=== PATIENT | male | born 1945 | race Caucasian/White ===

== ENCOUNTER 2024-01-11 13:41 | Observation (INO) ==
--- NOTE | 2024-01-11 13:46 | ED Triage Note ---
Date of Service January 11, 2024 Provider in Triage Author: Zoltan Mccullough History of Present Illness This patient was briefly evaluated while in triage. An abbreviated physical exam was performed. This patient is a 78-year-old Male who presents to the ED for evaluation referred by cardiology for SOB, dizzy, "heart acting weirdly" for the last 2-3 days, but worse today "I think it's my afib." + for COVID on Sunday 12/31, is feeling better from these symptoms was started on Paxlovid, but stopped due to symptoms on Eliquis Physical Exam GENERAL: NAD, afebrile CARDIOVASCULAR: IRR RESPIRATORY: CTA ABDOMEN: BS x 4. Nontender to palpation. Initial orders for labs and / or imaging were placed and patient was placed in the waiting area until a bed is available. Please see further documentation for the full ED course.
[2024-01-11 14:34] LABS: Basophils # (auto) 0.03 K/uL (0.00-0.20); Basophils % (auto) 0.4 %; Eosinophils # (auto) 0.34 K/uL (0.00-0.50); Eosinophils % (auto) 4.5 %; Hematocrit (blood only) 47.4 % (42.0-52.0); Hemoglobin 16.6 g/dl (14.0-18.0); Immature Granulocytes # (auto) 0.02 K/uL (0.01-0.20); Immature Granulocytes % (auto) 0.3 %; Lymphocytes # (auto) 1.21 K/uL (1.20-3.40); Lymphocytes % (auto) 16.1 %; Mean Corpuscular Hemoglobin 30.7 pg (25.0-34.0); Mean Corpuscular Volume 87.8 fL (80.0-100.0); Mean Platelet Volume 10.4 fL (9.4-12.4); Monocytes # (auto) 0.66 K/uL (0.11-0.59); Monocytes % (auto) 8.8 %; Neutrophils # (auto) 5.25 K/uL (1.40-6.50); Neutrophils % (auto) 69.9 %; Platelet Count 235 K/uL (130-400); RDW Coefficient of Variation 11.7 % (11.5-14.5); RDW Standard Deviation 37.1 fL (36.4-46.3); White Blood Count 7.51 K/ul (4.8-10.8)
[2024-01-11 14:35] LABS: Partial Thromboplastin Ratio 1.1; Partial Thromboplastin Time 29 Seconds (21-31); Prothrombin Time 11.3 Seconds (9.0-12.0)
[2024-01-11 14:45] LABS: Albumin Globulin Ratio 1.6 (0.9-2); Albumin Level 4.9 gm/dl (3.4-5.0); BUN Creatinine Ratio 13.4 (10-20); Bilirubin,Total 0.6 mg/dl (0.2-1.0); Calcium 9.7 mg/dl (8.6-10.3); Creatinine Clr Calc Pharmacy 73.4 ml/min; Est GFR (African American) 87.5 ml/min; Est GFR (Non-African American) 75.5 ml/min; Globulin 3.1 gm/dl (2.5-4.0); Magnesium 2.1 mg/dl (1.7-2.4)
[2024-01-11 14:50] LABS: Troponin I High Sensitivity 8.6 pg/ml (0-20)
[2024-01-11 14:59] LABS: Thyroid Stimulating Hormone 1.97 uIu/ml (0.300-4.500)
--- NOTE | 2024-01-11 15:21 | XRay Report ---
XR chest 1V not portable HISTORY: Shortness of breath. Palpitations. COMPARISON: None. FINDINGS: The lungs are clear. Cardiac silhouette is normal in size. No pleural effusions. No pneumot horax. IMPRESSION: No acute process. ACT 112: Negative or not required by law. Electronically signed by: Toñito Kendrick M.D. 01/11/2024 3:19 PM
--- NOTE | 2024-01-11 16:39 | Emergency Department Note ---
Impression & Plan Pre-syncope ADMIT ED Provider Note HPI: History obtained from patient. The patient is a very pleasant 78-year-old gentleman with history of atrial fibrillation, currently on dofetilide as well as Eliquis, presents the emergency department with a chief complaint of multiple episodes of lightheadedness/presyncope today. Patient states that 2-3 separate times today he had an episode where he felt lightheaded and at times felt as if he was going to pass out. Patient states he also felt palpitations and at times a sensation as if his heart rate was "low". He contacted his access representative office and was advised to come into the ER to be assessed. Patient states he was diagnosed with COVID-19 about 11 days ago. On arrival here to the ED the patient is hemodynamically stable, on my initial assessment he is resting comfortably and is in no acute distress. Patient denies any current chest pain, states he does have some mild shortness of breath. ROS: - Per HPI Differential Diagnosis: Arrhythmia to include atrial fibrillation with RVR, sick sinus syndrome, heart block, COVID-19 infection, pneumonia, acute coronary syndrome, critical electrolyte abnormalities, amongst other potential pathologies. *Outpatient medications and allergy history reviewed. PE: General: Alert HEENT: Normocephalic, trachea midline Eyes: Extraocular eye movement is intact, no scleral erythema Pulmonary: Clear to auscultation bilaterally, no wheezing Cardio: Regular rate and irregular rhythm GI: Abdomen is soft to palpation : No suprapubic tenderness MSK: No evidence of trauma or malformation of the extremities, no edema Skin: No evidence of rash Neuro: Alert, no focal deficits Psychiatric: Cooperative EKG: (As interpreted by myself): Rate: 84 Rhythm: Atrial fibrillation Intervals: Within normal limits ST changes: No ST elevation Time: 1405 Chest x-ray: (As interpreted by myself): No acute disease Interventions provided in ED: -IV fluid bolus Medical Decision Making: IV was established and lab work obtained, patient was placed on wool presser when placed in ED room. Lab work shows no leukocytosis, hemoglobin is normal, platelet count is normal, CMP does not show any evidence of any critical findings, troponin is negative. Patient is already anticoagulated on Eliquis, low suspicion for PE. Viral panel testing was obtained and the patient is positive for COVID-19. He states he was positive on a home test about 11 days ago. EKG obtained here in the ER shows evidence of atrial fibrillation with good rate controlled 84. I do not see any acute ischemic changes. I discussed the patient's presentation with the on-call cardiology midlevel provider, Saji May PA-C, he states that he was concerned the patient might be having conversion pauses or sinus node dysfunction or possibly sick sinus because he felt like he was going in and out of atrial fibrillation. Patient did not feel comfortable going home and therefore was sent to the ER with plan for likely overnight observation on wool presser. I discussed this with the patient, he is in agreement for admission. Case was then discussed with the on- call hospitalist, Dr. Back, the patient was placed for admission in stable condition. Consultants/Discussions held with other healthcare providers: -[facility], Saji May PA-C -Hospitalist, Dr. Back Disposition discussion held by myself with: -Patient Diagnosis: 1. Presyncopal event, acute 2. COVID-19 infection, acute 3. Sensation of palpitations, acute Disposition: Admission Jose Cash DO Emergency Medicine Past Med/Surg History Problem List (Updated 01/11/24 @ 21:04 by Jose Cash DO) Pre-syncope (Acute) History of COVID-19 Generalized weakness Near syncope Positive colorectal cancer screening using Cologuard test Prostate nodule Sinus bradycardia Family history of melanoma Mother Elevated prostate specific antigen (PSA) Osteoarthritis of left knee Urinary retention Paroxysmal atrial fibrillation controlled w/ medications, follows w/ Dr Benson Renal cyst, left Hepatic cyst Hypertension Hypercholesterolemia Neurogenic bladder Anticoagulant long-term use Medical History History of cardioversion Fall Surgical History Hx of colonoscopy Hx of arthroscopic knee surgery Hx of prostate biopsy S/P TURP (status post transurethral resection of prostate) x2 2016, 2017 S/P left knee arthroscopy Family History Father Myocardial infarction Mother Melanoma Cancer Denies family history of Ovarian cancer Prostate cancer Breast cancer Colorectal cancer Social History (Reviewed 01/11/24 @ 17:53 by RUTH Landin Smoking Status: Never smoker Second Hand Exposure: No; Do You Dip or Chew Tobacco: No; Hx Alcohol Use: Yes Alcohol type: beer Alcohol Intake Frequency: 4 or More x per/Week Hx Substance Use: No Preferred Language: Italian Communication Ability: Effective Visual Impairment: No Limitations Hearing Ability: Normal Peach Grower Required: No Beliefs That Will Affect Care: None marital status: Current Living Situation: Spouse current occupational status: retired How many Children do You have: 2 Feels Safe at Home: Yes Childhood Exposure to Second-Hand Smoke: No Diet: regular caffeine: Yes during the past year weight has: remained stable Dental Care, Regularly: Yes Physical Activity Frequency: Daily Seatbelt Use: always Sunscreen Use: Yes Assistive Devices: Glasses Allergies Allergies Allergy/AdvReac Type Severity Reaction Status Date / Time aspirin Allergy Severe Anaphylaxis Verified 01/11/24 17:33 NSAIDS (Non-Steroidal Allergy Severe Anaphylaxis Verified 01/11/24 17:33 Anti-Inflamma Home Meds Previous Rx's Medication Instructions Recorded atorvastatin 20 mg tablet 20 mg PO DAILY #90 tabs 06/09/23 apixaban 5 mg tablet (Eliquis) 5 mg PO BID #180 tabs 09/29/23 dofetilide 500 mcg capsule 500 mcg PO Q12H #180 caps 09/29/23 losartan 25 mg tablet 25 mg PO DAILY #90 tabs 09/29/23 Results & Data (ED) Vital Signs Vital Signs - 24 hr 01/11/24 13:43 01/11/24 17:03 01/11/24 17:16 Temperature 37.2 C Temperature Source Temporal Artery Scan Pulse Rate 87 61 Pulse Rate [Finger] 71 Pulse Rhythm Regular Pulse Rhythm [Finger] Regular Pulse Strength Normal Pulse Strength [Finger] Normal Respiratory Rate 20 20 Respiratory Effort / Characteristics Non-Labored Spontaneous Non-Labored Spontaneous Respiratory Depth Normal Normal Blood Pressure 148/95 H Blood Pressure [Left Arm] 135/92 Blood Pressure Mean 112 Blood Pressure Mean [Left Arm] 106 Blood Pressure Position Sitting Blood Pressure Position [Left Arm] Pulse Oximetry 96 97 Oxygen Delivery Method Room Air Room Air Sepsis Recent Fever Within 48 Hours No Sepsis New/Unexplained Change in Mental Status N/A Sepsis Action Taken by Nursing No Action Required 01/11/24 17:45 01/11/24 19:08 Temperature Temperature Source Pulse Rate Pulse Rate [Finger] 68 75 Pulse Rhythm Pulse Rhythm [Finger] Regular Regular Pulse Strength Pulse Strength [Finger] Normal Normal Respiratory Rate 20 20 Respiratory Effort / Characteristics Non-Labored Spontaneous Non-Labored Spontaneous Respiratory Depth Normal Normal Blood Pressure Blood Pressure [Left Arm] 135/92 135/90 Blood Pressure Mean Blood Pressure Mean [Left Arm] 106 105 Blood Pressure Position Blood Pressure Position [Left Arm] Sitting Pulse Oximetry 98 98 Oxygen Delivery Method Room Air Room Air Sepsis Recent Fever Within 48 Hours Sepsis New/Unexplained Change in Mental Status Sepsis Action Taken by Nursing Laboratory Data 01/11/24 14:06 01/11/24 14:06 Lab Results 01/11/24 01/11/24 Range/Units 14:06 17:07 WBC 7.51 (4.8-10.8) K/ul RBC 5.40 (4.70-6.10) M/uL Hgb 16.6 (14.0-18.0) g/dl Hct 47.4 (42.0-52.0) % MCV 87.8 (80.0-100.0) fL MCH 30.7 (25.0-34.0) pg MCHC 35.0 (32.0-36.0) g/dL RDW Std Deviation 37.1 (36.4-46.3) fL RDW Coeff of [place] 11.7 (11.5-14.5) % Plt Count 235 (130-400) K/uL MPV 10.4 (9.4-12.4) fL Immature Gran % (Auto) 0.3 % Neut % (Auto) 69.9 % Lymph % (Auto) 16.1 % [place] % (Auto) 8.8 % Eos % (Auto) 4.5 % Baso % (Auto) 0.4 % Neut # (Auto) 5.25 (1.40-6.50) K/uL Lymph # (Auto) 1.21 (1.20-3.40) K/uL [place] # (Auto) 0.66 H (0.11-0.59) K/uL Eos # (Auto) 0.34 (0.00-0.50) K/uL Baso # (Auto) 0.03 (0.00-0.20) K/uL Immature Gran # (Auto) 0.02 (0.01-0.20) K/uL PT 11.3 (9.0-12.0) Seconds INR 1.0 (0.9-1.1) APTT 29 (21-31) Seconds PTT Ratio 1.1 Sodium 140 (136-145) mmol/L Potassium 4.0 (3.5-5.1) mmol/L Chloride 104 (98-107) mmol/L Carbon Dioxide 28 (21-32) mmol/L Anion Gap 8 (3-11) BUN 13 (6-23) mg/dl Creatinine 0.97 (0.6-1.4) mg/dl Est Cr Clr Drug Dosing 73.4 ml/min Est GFR ( Amer) 87.5 ml/min Est GFR (Non-Af Amer) 75.5 ml/min BUN/Creatinine Ratio 13.4 (10-20) Glucose 114 H (70-99(Fasting)) mg/dl Calcium 9.7 (8.6-10.3) mg/dl Magnesium 2.1 (1.7-2.4) mg/dl Total Bilirubin 0.6 (0.2-1.0) mg/dl AST 18 (13-39) U/L ALT 22 (7-52) U/L Alkaline Phosphatase 53 (34-104) U/L Troponin I High Sens 8.6 (0-20) pg/ml Total Protein 8.0 (6.0-8.3) gm/dl Albumin 4.9 (3.4-5.0) gm/dl Globulin 3.1 (2.5-4.0) gm/dl Albumin/Globulin Ratio 1.6 (0.9-2) TSH 1.970 (0.300-4.500) uIu/ml SARS-CoV-2 (PCR) POSITIVE A (Negative) Influenza Type A (PCR) Negative (Neg) Influenza Type B (PCR) Negative (Neg) RSV (RT-PCR) Negative (Neg) Administered Medications Lactated Ringer's (Lr) 1,000 mls @ 100 mls/hr IV .Q10H MARCO Stop: 01/12/24 04:29 Last Admin: 01/11/24 18:52 Dose: 100 mls/hr Documented By: YAZ Discontinued Medications Sodium Chloride (Nss) 500 mls @ 999 mls/hr IV .Q31M ONE Stop: 01/11/24 17:32 Last Infusion: 01/11/24 17:35 Dose: Infused Documented By: Admin: 01/11/24 17:05 Dose: 999 mls/hr Documented By: YAZ Imaging Data Radiologist's Impression: Chest X-Ray 01/11/24 13:46 XR chest 1V not portable HISTORY: Shortness of breath. Palpitations. COMPARISON: None. FINDINGS: The lungs are clear. Cardiac silhouette is normal in size. No pleural effusions. No pneumothorax. IMPRESSION: No acute process. ACT 112: Negative or not required by law. Electronically signed by: Toñito Kendrick M.D. 01/11/2024 3:19 PM Discharge Plan Visit Data Chief Complaint: Cardiac Assessment Stated Complaint: CARDIAC ASS ED Provider: Jose Cash Discharge Problem: Pre-syncope Forms Stand Alone Forms: [facility] Prescriptions Prescriptions: No Action atorvastatin 20 mg tablet 20 mg PO DAILY Qty: 90 3RF Eliquis 5 mg tablet 5 mg PO BID Qty: 180 3RF dofetilide 500 mcg capsule 500 mcg PO Q12H Qty: 180 3RF losartan 25 mg tablet 25 mg PO DAILY Qty: 90 3RF Rx Instructions: TAKE ONE TABLET (25 MG) DAILY Referrals Referrals: Gallo Reynolds DO [Primary Care Provider] -
[2024-01-11] MEDS: SODIUM CHLORIDE 0.9% 500 ML IV ONE (17:05)
--- NOTE | 2024-01-11 17:07 | History & Physical Report ---
Date of Service January 11, 2024 Assessment & Plan (1) Near syncope: Plan: - Patient presented with multiple presyncopal events - Possibly secondary to drug interaction between Paxlovid and Dofelilide, atrial fibrillation, heart block, or arrhythmia - saw cardiology outpatient, recommended overnight observation on bus monitor to see if he is going in and out of atrial fibrillation or having conversion pauses, continue home meds, order TSH, CBC, Trop, and fluids. - NSS bolus given in ED, 1L LR ordered at maintenance rate - troponin, CXR, coag studies negative - EKG showed atrial fibrillation, QRS 76 - K+, Mg, and TSH within normal limits - Paxlovid discontinued - cardiology consulted - admit to PCU/tele for continuous cardiac monitoring (2) Paroxysmal atrial fibrillation: Plan: - EKG with cardio out patient this morning showed atrial fibrillation - EKG on admission continued afib - continue with home Eliquis and doftilide - bus monitor on tele (3) History of COVID-19: Plan: - tested positive Sunday 12/31, repeat pending - continue symptoms, improving - no hypoxia - discontinued Paxlovid 01/03 Plan Chronic stable diagnoses: Renal and hepatic cyst/ neurogenic bladder: continue with self caths. HTN: continue with home losartan HDL: continue with home statin VTE ppx: home Eliquis Diet: heart healthy Code status: FULL CODE Admission and Anticipated Discharge Date Admission Date: 01/11/24 History of Present Illness Chief Complaint: Syncopal event Primary Care Provider: Gallo Reynolds DO Patient is a 78 year old male with a history of A-fib on Eliquis and Dofetilide, hypertension, hyperlipidemia, renal and hepatic cysts, and neurogenic bladder. Patient self caths at home. He presented today after multiple presyncopal events this morning. He was diagnosed with COVID-19 on Sunday 12/31, in which he was prescribed Paxlovid. After about 2 days of taking the Paxlovid, he experienced a presyncopal event that he described at lightheadedness, dizziness, sweats, shortness of breath, and palpations. He shared that his pulse was between 30-40 during this episode. After this episode he stopped the Paxlovid and did have another event until this morning. He has been walking about 2 miles a day with no issues until today. On his walk this morning he barley made it down the driveway when he had a presyncopal event. He then had another event in his house later this morning. He had an appointment with cardiology today, in which they referred him to be admitted for monitoring. Cardiology stated that the events could be due to an interaction with the Paxlovid and Dofetilide. The patient currently complains of ongoing COVID symptoms of headache, rhinorrhea, dry cough, and shortness of breath. He denies current lightheadedness, dizziness, blurry vision, double vision, sore throat, hemoptysis, chest pain, palpitations, abdominal pain, nausea, vomiting, diarrhea, constipation, numbness, tingling, and edema. He does not smoke, and drinks alcohol socially, no illicit drug use. He denies a history of COPD or asthma. His POA is his . Allergies Allergy/AdvReac Type Severity Reaction Status Date / Time aspirin Allergy Severe Anaphylaxis Verified 01/11/24 17:33 NSAIDS (Non-Steroidal Allergy Severe Anaphylaxis Verified 01/11/24 17:33 Anti-Inflamma Home Medications Medication Instructions Recorded Confirmed Type atorvastatin 20 mg tablet 20 mg PO DAILY #90 tabs 06/09/23 01/11/24 Rx apixaban 5 mg tablet (Eliquis) 5 mg PO BID #180 tabs 09/29/23 01/11/24 Rx dofetilide 500 mcg capsule 500 mcg PO Q12H #180 caps 09/29/23 01/11/24 Rx losartan 25 mg tablet 25 mg PO DAILY #90 tabs 09/29/23 01/11/24 Rx Past Med/Surg History Problem List (Updated 01/11/24 @ 17:58 by Rachelle Glass PA-C) History of COVID-19 Generalized weakness Near syncope Positive colorectal cancer screening using Cologuard test Prostate nodule Sinus bradycardia Family history of melanoma Mother Elevated prostate specific antigen (PSA) Osteoarthritis of left knee Urinary retention Paroxysmal atrial fibrillation controlled w/ medications, follows w/ Dr Benson Renal cyst, left Hepatic cyst Hypertension Hypercholesterolemia Neurogenic bladder Anticoagulant long-term use Medical History History of cardioversion Fall Surgical History Hx of colonoscopy Hx of arthroscopic knee surgery Hx of prostate biopsy S/P TURP (status post transurethral resection of prostate) x2 2016, 2017 S/P left knee arthroscopy Family History Father Myocardial infarction Mother Melanoma Cancer Denies family history of Ovarian cancer Prostate cancer Breast cancer Colorectal cancer Social History Smoking Status: Never smoker Second Hand Exposure: No; Do You Dip or Chew Tobacco: No; Hx Alcohol Use: Yes Alcohol type: beer Alcohol Intake Frequency: 4 or More x per/Week Hx Substance Use: No Preferred Language: Belarusian Communication Ability: Effective Visual Impairment: No Limitations Hearing Ability: Normal Horse Groomer Required: No Beliefs That Will Affect Care: None marital status: Current Living Situation: Spouse current occupational status: retired How many Children do You have: 2 Feels Safe at Home: Yes Childhood Exposure to Second-Hand Smoke: No Diet: regular caffeine: Yes during the past year weight has: remained stable Dental Care, Regularly: Yes Physical Activity Frequency: Daily Seatbelt Use: always Sunscreen Use: Yes Assistive Devices: Glasses Review of Systems Review of Systems: See HPI above Physical Exam Physical Exam: The patient is awake, alert and oriented 3, well developed and well nourished, normocephalic and atraumatic, lying in bed and in no acute distress. Non-toxic appearing. Wearing a mask. HEENT- EOMI, mucous membranes moist. Hearing grossly intact. Neck-No JVD. No bruits. Heart-Irregularly irregular rhythm. normal S1 and S2. No murmurs, rubs or gallops. Lungs-clear bilaterally, no respiratory distress, no accessory muscle use. Abdomen-normal bowel sounds and soft. Non-tender. Extremities-no cyanosis or clubbing. No edema. Dermatologic-normal skin turgor, normal color, no abnormal lymph nodes, no rash. Psychiatric-normal affect. Results & Data Results & Data Vital Signs (Past 12 Hours) Vital Signs Temp Pulse Pulse Resp BP BP Pulse Ox 01/11/24 17:03 71 20 135/92 97 01/11/24 13:43 37.2 C 87 20 148/95 H 96 O2 Del Method 01/11/24 17:03 Room Air 01/11/24 13:43 Room Air Laboratory Results Abnormal lab results 01/11/24 Range/Units 14:06 [place] # (Auto) 0.66 H (0.11-0.59) K/uL Glucose 114 H (70-99(Fasting)) mg/dl Diagnostic Findings Chest X-Ray 01/11/24 13:46 XR chest 1V not portable HISTORY: Shortness of breath. Palpitations. COMPARISON: None. FINDINGS: The lungs are clear. Cardiac silhouette is normal in size. No pleural effusions. No pneumothorax. IMPRESSION: No acute process. ACT 112: Negative or not required by law. Electronically signed by: oTñito Kendrick M.D. 01/11/2024 3:19 PM Code Status & VTE Plan Code Status FULL CODE VTE Prophylaxis Plan VTE Prophylaxis will be ordered: Yes Supervising Physician Co-Signing Physician Notes Patient seen and examined, chart reviewed, case discussed with Rachelle Glass PA-C and I agree with the assessment and plan as above except as otherwise noted Labs and images reviewed 78-year-old male with a past medical history of hypertension, hyperlipidemia, paroxysmal A-fib on DOAC, tachybradycardia syndrome, neurogenic bladder, hepatic cyst, left renal cyst who was seen at the outpatient cardiology office for near syncope and weakness which was concerning for potential conversion pauses, sick sinus syndrome, or sinus dysfunction. At time of cardiology assessment in the office heart rate was 84 bpm. Due to the severity of his symptoms he was recommended for ER evaluation and overnight observation on cardiac monitoring to follow for A-fib/tachybradycardia/conversion pauses that correlate with the symptoms. Recurrent Presyncope - 1x today, 1x a week ago. Some of sowed's preceding that. Pt reports slow pulse during episodes Patient saw cardiology 01/10, recommended for overnight rhythm monitoring.will admit to telemetry, evaluate for intermittent heart block/conversion pauses/arrhythmia on overnight trend Initial troponin is normal Remaining EKG A-fib, rate 84, QT 385. Optimize mag 2.0, potassium 4.0 If overnight telemetry is normal, would arrange 30-day event monitor Cardiology following Dofetilide continued, Paxlovid discontinued Recent COVID No hypoxia Supportive care Patient was previously prescribed Paxlovid he is no longer taking this. This does have a strong CYP inhibition reaction with dofetilide with known concentration increase of around 50%. Agree with assessment and management above PG Care Time/CCT Total # of Minutes Spent Total Time Spent with Patient: Total time spent is greater than 50% in coordination of care (as documented) at patient's floor/unit and/or counseling patient: Coding Level of Care Code None Diagnoses Near syncope R55 Paroxysmal atrial fibrillation I48.0 History of COVID-19 Z86.16
[2024-01-11 18:20] LABS: Influenza A virus by PCR Negative (Neg); Influenza B virus by PCR Negative (Neg); RSV by PCR Negative (Neg); SARS CoV2 RNA(COVID-19) Ceph POSITIVE (Negative)
[2024-01-11] MEDS: LACTATED RINGER'S 1,000 ML IV SCH (18:52)
[2024-01-11] MEDS: APIXABAN 5 MG TABLET PO SCH (21:34)
[2024-01-11] MEDS: DOFETILIDE 125 MCG CAPSULE PO SCH (22:42)
[2024-01-12 05:27] LABS: Hematocrit (blood only) 42.2 % (42.0-52.0); Hemoglobin 14.8 g/dl (14.0-18.0); Mean Corpuscular Hemoglobin 31.1 pg (25.0-34.0); Mean Corpuscular Hgb Conc 35.1 g/dL (32.0-36.0); Mean Corpuscular Volume 88.7 fL (80.0-100.0); Mean Platelet Volume 10.4 fL (9.4-12.4); Platelet Count 203 K/uL (130-400); RDW Coefficient of Variation 11.6 % (11.5-14.5); RDW Standard Deviation 37.3 fL (36.4-46.3); Red Blood Count 4.76 M/uL (4.70-6.10); White Blood Count 6.59 K/ul (4.8-10.8)
[2024-01-12 05:35] LABS: BUN Creatinine Ratio 11.1 (10-20); Calcium 8.7 mg/dl (8.6-10.3); Creatinine Clr Calc Pharmacy 71.9 ml/min; Est GFR (African American) 85.4 ml/min; Est GFR (Non-African American) 73.7 ml/min
[2024-01-12] MEDS: LOSARTAN POTASSIUM 25 MG TAB PO SCH (09:58)
[2024-01-12] MEDS: ATORVASTATIN 20 MG TAB PO SCH (09:59)
--- NOTE | 2024-01-12 12:46 | Electrocardiogram Report ---
Test Reason : Blood Pressure : */* mmHG Vent. Rate : 84 BPM Atrial Rate : * BPM P-R Int : * ms QRS Dur : 76 ms QT Int : 326 ms P-R-T Axes : * 70 -32 degrees QTcB Int : 385 ms Atrial fibrillation T wave abnormality, consider inferolateral ischemia Abnormal ECG When compared with ECG of 11-Jan-2024 13:04, T wave inversion more evident in Inferolateral leads QT has shortened Confirmed by Tommie Orr ([id number]) on 01/12/2024 12:46:29 PM Referred By: Confirmed By: Tommie Orr
--- NOTE | 2024-01-12 12:48 | Cardiology Consultation ---
Date of Consultation January 12, 2024 Assessment & Plan (1) Near syncope: (2) Paroxysmal atrial fibrillation: (3) Sinus bradycardia: Plan ASSESSMENT/PLAN: 1. Near syncope: Occurred while ill with COVID. Also seem to coincide with atrial fibrillation although rhythm initially outside of the hospital not known. Chronically bradycardic but more so transiently. Witnessed conversion from A- fib to sinus noted here with transient bradycardia in the 30s. This may have possibly led to his symptoms versus being in A-fib in general. Recommend 30-day event monitor. Recommend orthostatic vitals. Normal LV systolic function on preliminary echo review. 2. Paroxysmal atrial fibrillation: Had been well-controlled in sinus rhythm with dofetilide for years. Chronic sinus bradycardia. Symptoms seem to begin once he was ill with COVID. This episode of atrial fibrillation may have been due to his viral illness. To further evaluate rhythm, recommend 30-day event monitor as above before changing antiarrhythmic therapy. This was discussed with his primary alteration specialist/tar heater, who is in agreement. Continue anticoagulation for stroke risk reduction. 3. Sinus bradycardia: Chronically bradycardic in the 50s per patient report. Has tolerated it well as he exercises regularly including recent 8 mile run. No indication for pacemaker currently. Continue current regimen. 4. Disposition: Recommend orthostatic vitals as noted. If unremarkable, can be discharged home from a cardiology perspective. Have discussed with cardiology outpatient office who will arrange a 30-day event monitor and patient can call the office when he is available to receive the monitor. Patient care communicated with primary hospitalist, Dr. Shrestha. Today's visit was 55 minutes in duration, which includes [id number] time, counseling patient, coordinating care, reviewing multiple records as outlined, completing documentation. Thank you for allowing me to participate in the care of your patient. Please call for any other questions or concerns. Sincerely, Tez Orr M.D. History of Present Illness Reason for Consultation: Near syncope, A-fib Requesting Physician: Jose Cash Attending Physician: Everardo Shrestha MD History of Present Illness Mr. Guzman is a pleasant 78-year-old gentleman with a history significant for atrial fibrillation on Tikosyn and anticoagulation therapy, hypertension, dyslipidemia, and neurogenic bladder. He was admitted on 01/11/2024 with near syncope and atrial fibrillation. He is very active and has been training for a half marathon. He ran 8 miles recently and then the next day developed COVID infection with symptoms including fatigue/weakness, and fever. He states that he became rather ill. He then started Paxlovid. After the fourth dose, while sitting, he became diaphoretic and checked his heart rate via pulse oximeter and noted that his heart rate was in the 30s. It was in the low 40s for days when he intermittently evaluated. He developed new dyspnea on exertion and occasionally at rest. He then felt better for days and started exercising again only to once again develop near syncope while walking. This prompted him to go to his cardiology office and he was seen by Mr. Lalo MULLINS on 01/11/2024. He was noted to be in rate controlled atrial fibrillation but given his near syncope, sent to the ER for observation to evaluate his heart rate and for conversion pauses. Approximately 5 minutes before I entered the room, technical sales representative reported that he had transient bradycardia with heart rates in the 30s while she was performing his echo. Telemetry demonstrated that he converted from atrial fibrillation to sinus at 1327 on 01/12/2024. Initially after the conversion, he had some sinus complexes, some junctional complexes and his heart rate was in the 30s for 20 to 30 seconds before increasing into the upper 40s to 50s and sinus bradycardia. He currently felt well without chest pain or shortness of breath. He denies any further syncope or near syncope. He denies palpitations, edema, melena, hematochezia, or hematuria. In regards to his atrial fibrillation, he underwent cardioversion years ago and 60 days later began taking dofetilide due to recurrent arrhythmia. He has been able to have a very good quality of life on dofetilide without recurrent atrial fibrillation that he was aware until just recently. Review of systems: As above. Review of systems otherwise negative/unremarkable. Family history: No known premature CAD. Father suddenly at the age of 72. Social history: Denies smoking. Occasional alcohol. Lives with his (Avis). His was present at the bedside. Allergies Allergy/AdvReac Type Severity Reaction Status Date / Time aspirin Allergy Severe Anaphylaxis Verified 01/11/24 17:33 NSAIDS (Non-Steroidal Allergy Severe Anaphylaxis Verified 01/11/24 17:33 Anti-Inflamma Home Medications Medication Instructions Recorded Confirmed Type atorvastatin 20 mg tablet 20 mg PO DAILY #90 tabs 06/09/23 01/11/24 Rx apixaban 5 mg tablet (Eliquis) 5 mg PO BID #180 tabs 09/29/23 01/11/24 Rx dofetilide 500 mcg capsule 500 mcg PO Q12H #180 caps 09/29/23 01/11/24 Rx losartan 25 mg tablet 25 mg PO DAILY #90 tabs 09/29/23 01/11/24 Rx Problem List Pre-syncope (Acute) History of COVID-19 Generalized weakness Near syncope Positive colorectal cancer screening using Cologuard test Prostate nodule Sinus bradycardia Family history of melanoma Mother Elevated prostate specific antigen (PSA) Osteoarthritis of left knee Urinary retention Paroxysmal atrial fibrillation controlled w/ medications, follows w/ Dr Benson Renal cyst, left Hepatic cyst Hypertension Hypercholesterolemia Neurogenic bladder Anticoagulant long-term use Patient History Medical History History of cardioversion Fall Surgical History Hx of colonoscopy Hx of arthroscopic knee surgery Hx of prostate biopsy S/P TURP (status post transurethral resection of prostate) x2 2015, 2016 S/P left knee arthroscopy Family History Father Myocardial infarction Mother Melanoma Cancer Denies family history of Ovarian cancer Prostate cancer Breast cancer Colorectal cancer Social History Smoking Status: Never smoker Second Hand Exposure: No; Do You Dip or Chew Tobacco: No; Hx Alcohol Use: Yes Alcohol type: beer Alcohol Intake Frequency: 4 or More x per/Week Hx Substance Use: No Preferred Language: Urdu Communication Ability: Effective Visual Impairment: No Limitations Hearing Ability: Normal First Assist Required: No Beliefs That Will Affect Care: None marital status: Current Living Situation: Spouse Current Living Situation Comment: Home with spouse current occupational status: retired How many Children do You have: 2 Feels Safe at Home: Yes Safety Concerns: Feels Safe At This Time Childhood Exposure to Second-Hand Smoke: No Diet: regular caffeine: Yes during the past year weight has: remained stable Dental Care, Regularly: Yes Physical Activity Frequency: Daily Seatbelt Use: always Sunscreen Use: Yes Assistive Devices: Glasses Physical Exam Physical Exam: Gen.: No acute distress. Alert and oriented. HEENT: Anicteric sclera. Neck: No JVD. No bruits. Normal carotid upstrokes bilaterally. Cardiac: Regular and bradycardic in the 50s. Normal S1-S2. No murmurs, rubs, or gallops. Pulmonary: Clear to auscultation bilaterally without wheezes, rales, or rhonchi. Abdomen: Soft, nontender, nondistended, with normoactive bowel sounds. No bruits noted. Extremities: 2+ radial pulses bilaterally. 2+ posterior tibialis pulses bilaterally. No edema or cyanosis. Psychiatric: Affect appears appropriate. Results & Data Vital Signs (Past 12 Hours) Vital Signs Temp Pulse Pulse Resp BP BP Pulse Ox 01/12/24 11:38 37.1 C 72 16 113/81 96 01/12/24 10:00 79 31 H 121/83 98 01/12/24 09:06 64 20 108/85 95 01/12/24 08:00 79 22 98/71 L 98 01/12/24 07:50 61 01/12/24 07:03 56 L 14 104/72 96 01/12/24 06:00 65 20 102/79 96 01/12/24 05:00 65 20 113/80 96 01/12/24 04:00 70 123/88 01/12/24 03:33 53 L 15 123/88 01/12/24 01:00 63 131/89 01/12/24 01:00 36.6 C 59 L 19 131/89 96 O2 Del Method 01/12/24 11:38 Room Air 01/12/24 10:00 Room Air 01/12/24 09:06 01/12/24 08:00 Room Air 01/12/24 07:50 01/12/24 07:03 Room Air 01/12/24 06:00 Room Air 01/12/24 05:00 Room Air 01/12/24 04:00 01/12/24 03:33 01/12/24 01:00 01/12/24 01:00 Room Air Laboratory Results Laboratory Results - last 24 hr 01/11/24 01/11/24 01/12/24 14:06 17:07 04:49 WBC 7.51 6.59 RBC 5.40 4.76 Hgb 16.6 14.8 Hct 47.4 42.2 MCV 87.8 88.7 MCH 30.7 31.1 MCHC 35.0 35.1 RDW Std Deviation 37.1 37.3 RDW Coeff of [place] 11.7 11.6 Plt Count 235 203 MPV 10.4 10.4 Immature Gran % (Auto) 0.3 Neut % (Auto) 69.9 Lymph % (Auto) 16.1 [place] % (Auto) 8.8 Eos % (Auto) 4.5 Baso % (Auto) 0.4 Neut # (Auto) 5.25 Lymph # (Auto) 1.21 [place] # (Auto) 0.66 H Eos # (Auto) 0.34 Baso # (Auto) 0.03 Immature Gran # (Auto) 0.02 PT 11.3 INR 1.0 APTT 29 PTT Ratio 1.1 Sodium 140 140 Potassium 4.0 4.0 Chloride 104 107 Carbon Dioxide 28 29 Anion Gap 8 4 BUN 13 11 Creatinine 0.97 0.99 Est Cr Clr Drug Dosing 73.4 71.9 Est GFR ( Amer) 87.5 85.4 Est GFR (Non-Af Amer) 75.5 73.7 BUN/Creatinine Ratio 13.4 11.1 Glucose 114 H 90 Calcium 9.7 8.7 Magnesium 2.1 2.0 Total Bilirubin 0.6 AST 18 ALT 22 Alkaline Phosphatase 53 Troponin I High Sens 8.6 Total Protein 8.0 Albumin 4.9 Globulin 3.1 Albumin/Globulin Ratio 1.6 TSH 1.970 SARS-CoV-2 (PCR) POSITIVE A Influenza Type A (PCR) Negative Influenza Type B (PCR) Negative RSV (RT-PCR) Negative Diagnostic Findings ECG personally reviewed 01/12/2024: A-fib 84 bpm. Inferolateral T wave inversion. Normal QT. Outpatient cardiology note reviewed. Echo report 07/18/2019 reviewed: Normal LV size, wall motion, systolic function. EF 60-65%. Moderate left and mild right atrial dilation. Sclerotic aortic valve without significant stenosis. Mild MR. Sinus bradycardia in the 40s. Normal RVSP. History and physical report reviewed. Labs reviewed and notable for normal potassium, normal renal function, normal transaminase levels, normal TSH, normal blood counts. Chest x-ray 01/11/2024: No acute process per radiology. Medications Administered Current Inpatient Medications Apixaban (Apixaban 5 Mg Tablet) 5 mg PO BID MARCO Stop: 02/10/24 20:59 Last Admin: 01/12/24 09:59 Dose: 5 mg Atorvastatin Calcium (Atorvastatin 20 Mg Tab) 20 mg PO DAILY MARCO Stop: 02/11/24 08:59 Last Admin: 01/12/24 09:59 Dose: 20 mg Dofetilide (Dofetilide 125 Mcg Capsule) 500 mcg PO Q12H MARCO Stop: 02/10/24 21:50 Last Admin: 01/12/24 09:56 Dose: 500 mcg Losartan Potassium (Losartan Potassium 25 Mg Tab) 25 mg PO DAILY MARCO Stop: 02/11/24 08:59 Last Admin: 01/12/24 09:58 Dose: 25 mg PG Care Time/CCT Total # of Minutes Spent Total Time Spent with Patient: Total time spent is greater than 50% in coordination of care (as documented) at patient's floor/unit and/or counseling patient: Coding Level of Care Code 01696 INT INP/OBS CARE 255MIN Diagnoses Near syncope R55 Paroxysmal atrial fibrillation I48.0 Sinus bradycardia R00.1
[2024-01-12 17:55] VITALS: BP 114/76; PULSE 58; RESP 16; TEMP 97.8; O2SAT 97
--- NOTE | 2024-01-12 19:02 | XCELERA ---
[id number]
--- NOTE | 2024-01-12 19:35 | Discharge Summary ---
Discharge Summary Date of Service January 12, 2024 Principal Dx & Hospital Course #1 = Principal Diagnosis (1) Near syncope: Patient presented with multiple presyncopal events - Possibly secondary to drug interaction between Paxlovid and Dofelilide, atrial fibrillation, heart block, or arrhythmia - saw cardiology outpatient, recommended overnight observation on monitor and storage bin tender to see if he is going in and out of atrial fibrillation or having conversion pauses, continue home meds, order TSH, CBC, Trop, and fluids. - troponin, CXR, coag studies negative - EKG showed atrial fibrillation, QRS 76 - K+, Mg, and TSH within normal limits - Paxlovid discontinued - cardiology consulted * Witnessed conversion from A-fib to sinus noted during hospitalization with transient bradycardia in the 30s. This may have possibly led to his symptoms versus being in A-fib in general. * Recommend 30-day event monitor to further evaluate rhythm before changing antiarrhythmic therapy. * Normal LV systolic function on preliminary echo review. * Had been well-controlled in sinus rhythm with dofetilide for years. Chronic sinus bradycardia. Symptoms seem to begin once he was ill with COVID. This episode of atrial fibrillation may have been due to his viral illness. * Continue anticoagulation for stroke risk reduction. - discharged on 01/12/24 with plan to follow-up with cardiology (2) Paroxysmal atrial fibrillation: - EKG with cardio out patient this morning showed atrial fibrillation - EKG on admission continued afib - continue with home Eliquis and doftilide - as noted in cardio consult recs above (3) History of COVID-19: tested positive Sunday 12/31 - continue symptoms, improving - no hypoxia - discontinued Paxlovid 01/03 Plan Chronic stable diagnoses: Renal and hepatic cyst/ neurogenic bladder: continue with self caths. HTN: continue with home losartan HDL: continue with home statin VTE ppx: home Eliquis Code status: FULL CODE Admission HPI Per Admitting Provider Patient is a 78 year old male with a history of A-fib on Eliquis and Dofetilide, hypertension, hyperlipidemia, renal and hepatic cysts, and neurogenic bladder. Patient self caths at home. He presented today after multiple presyncopal events this morning. He was diagnosed with COVID-19 on Sunday 12/31, in which he was prescribed Paxlovid. After about 2 days of taking the Paxlovid, he experienced a presyncopal event that he described at lightheadedness, dizziness, sweats, shortness of breath, and palpations. He shared that his pulse was between 30-40 during this episode. After this episode he stopped the Paxlovid and did have another event until this morning. He has been walking about 2 miles a day with no issues until today. On his walk this morning he barley made it down the driveway when he had a presyncopal event. He then had another event in his house later this morning. He had an appointment with cardiology today, in which they referred him to be admitted for monitoring. Cardiology stated that the events could be due to an interaction with the Paxlovid and Dofetilide. The patient currently complains of ongoing COVID symptoms of headache, rhinorrhea, dry cough, and shortness of breath. He denies current lightheadedness, dizziness, blurry vision, double vision, sore throat, hemoptysis, chest pain, palpitations, abdominal pain, nausea, vomiting, diarrhea, constipation, numbness, tingling, and edema. He does not smoke, and drinks alcohol socially, no illicit drug use. He denies a history of COPD or asthma. His POA is his . Discharge Exam General: No acute distress, nondiaphoretic, well-developed, well-nourished. Skin: The skin was without rashes, erythema, edema, or bruising. Cardiac: Regular rhythm, bradycardic rate in the 50s without murmurs gallops or rubs. Pulm: Clear to auscultation bilaterally without wheezes, rales or rhonchi. No respiratory distress. 97% on room air. Abdominal: Soft, nontender, nondistended. Bowel sounds present. Neuro: A&O x3. No focal neurological deficits. Discharge Plan Discharge Items Patient Disposition: Home - Self-Care Reason For Visit: SYNCOPAL EVENT Discharge Diagnosis: Near syncope, paroxysmal atrial fibrillation, sinus bradycardia Condition on Discharge: Good Activity: Per Instructions section Non-emergency contact: Primary Care Provider and Excavator Operator Call non-emergency contact if: you have any medication questions and your symptoms worsen Follow-up/Referrals: Gallo Reynolds, [Primary Care Provider] - Diet: Heart Healthy Addtl Attending Provider Instructions: Mr. Thomas, You were admitted to the hospital due to multiple presyncopal episodes at home. It appears that these episodes coincide with your acute COVID illness. Also seems to coincide with atrial fibrillation, which was likely triggered by your acute illness. You converted back to sinus rhythm while at the hospital, and noted to have some intermittently low heart rates in the 30s. This may have led to your symptoms versus being in A-fib in general. Cardiology is recommending a 30-day event monitor to further evaluate your heart rhythm. You can call your cardiology office tomorrow morning to arrange when you are able to receive the heart monitor. There have been no medication changes from this hospitalization. Please return to the hospital if any of these occur: Shortness of breath or trouble breathing, passing out, uncontrolled bleeding, heartbeat that is irregular/very fast or slow compared with your normal heartbeat, chest pain or pressure, extreme drowsiness or confusion, numbness or weakness in your arms, legs, or face, or trouble speaking or seeing. It was a pleasure taking care of you while you were in the hospital, Beryl Richardson PA-C Pending Studies at Discharge: No Stand-Alone Forms: My [facility], Smoking Cessation Medications and DC Order Prescriptions: Continued atorvastatin 20 mg tablet 20 mg PO DAILY Qty: 90 3RF Eliquis 5 mg tablet 5 mg PO BID Qty: 180 3RF dofetilide 500 mcg capsule 500 mcg PO Q12H Qty: 180 3RF losartan 25 mg tablet 25 mg PO DAILY Qty: 90 3RF Rx Instructions: TAKE ONE TABLET (25 MG) DAILY Discharge Orders: Discharge Order (Routine); Ordered 01/12/24 Ordered By: Beryl Richardson Admission Data Admit Date/Time: 01/11/24 17:34 Attending Provider: Everardo Shrestha Admit Provider: Erwin Back Primary Care Provider: Gallo Reynolds Other Providers: Erwin Back; Federico Yarbrough Other Interventions: Discharge Summary Assessment (RN) Last Done: 01/12/24 17:51 Hospital Stay Data Consultations 01/11/24 17:04 Consult Cardiology Routine ED Decision to Admit Stat Diagnostic Imagining Performed Chest X-Ray 01/11/24 13:46 XR chest 1V not portable HISTORY: Shortness of breath. Palpitations. COMPARISON: None. FINDINGS: The lungs are clear. Cardiac silhouette is normal in size. No pleural effusions. No pneumothorax. IMPRESSION: No acute process. ACT 112: Negative or not required by law. Electronically signed by: Toñito Kendrick M.D. 01/11/2024 3:19 PM Pending Results Patient Have Any Pending Studies at Discharge: No Discharge Instructions Given to Patient (Per Discharging Provider) Mr. Guzman, Andrew were admitted to the hospital due to multiple presyncopal episodes at home. It appears that these episodes coincide with your acute COVID illness. Also seems to coincide with atrial fibrillation, which was likely triggered by your acute illness. You converted back to sinus rhythm while at the hospital, and noted to have some intermittently low heart rates in the 30s. This may have led to your symptoms versus being in A-fib in general. Cardiology is recommending a 30-day event monitor to further evaluate your heart rhythm. You can call your cardiology office tomorrow morning to arrange when you are able to receive the heart monitor. There have been no medication changes from this hospitalization. Please return to the hospital if any of these occur: Shortness of breath or trouble breathing, passing out, uncontrolled bleeding, heartbeat that is irregular/very fast or slow compared with your normal heartbeat, chest pain or pressure, extreme drowsiness or confusion, numbness or weakness in your arms, legs, or face, or trouble speaking or seeing. It was a pleasure taking care of you while you were in the hospital, Beryl Richardson PA-C Total Time Total Time Spent Total Time Spent (In Minutes): Greater than 30 minutes spent completing this discharge process including direct patient care, medication reconciliation, documentation, review of labs and images, and coordination of care. Coding Level of Care Code 55596 INP/OBS DISCH >30 MIN Diagnoses Near syncope R55 Paroxysmal atrial fibrillation I48.0 History of COVID-19 Z86.16
== END 2024-01-12 17:40 | disposition home or self-care (01) ==
LOC: EDINP 13:41 → ED 13:41 → SUATTDRO 17:34 → EDINP 21:50
DX: K76.89 Other specified diseases of liver; Z88.8 Allergy status to other drugs, medicaments and biological substances; N28.1 Cyst of kidney, acquired; Z86.16 Personal history of COVID-19; I10 Essential (primary) hypertension; Z79.899 Other long term (current) drug therapy; R55 Syncope and collapse; I48.0 Paroxysmal atrial fibrillation; N31.9 Neuromuscular dysfunction of bladder, unspecified; Z88.6 Allergy status to analgesic agent; Z79.01 Long term (current) use of anticoagulants; R00.1 Bradycardia, unspecified; E78.5 Hyperlipidemia, unspecified